=== PATIENT | male | born 1950 | race Caucasian/White ===

== ENCOUNTER 2021-01-28 14:31 | Emergency (ER) | payer BC ==
--- NOTE | 2021-01-28 15:38 | EDM.PDOC ---
ED HPI GENERAL MEDICAL PROBLEM - General Chief Complaint: Gastrointestinal Problem Stated Complaint: FEVER,DIARRHEA -CANCER PT Time Seen by Provider: 01/28/21 15:37 - History of Present Illness INITIAL COMMENTS - FREE TEXT/NARRATIVE: 71-year-old male presents the emergency room with severe diarrhea and fevers. Patient has a significant history of lymphoma T-cell follicular type. His first dose of chemotherapy was on the of last month. And he did fine following this. Yesterday he developed diarrhea every time he tries to eat or drink some it goes right through him. He has had fevers as high as 101.5 at home. He d enies any significant discomfort but he is starting to get weak and lightheaded. Patient denies any recent antibiotic use. He has not seen any blood in the diarrhea it is often very watery. - Related Data Allergies Allergy/AdvReac Type Severity Reaction Status Date / Time indomethacin [From Indocin] Allergy Cannot Verified 01/28/21 15:03 Remember Home Meds: Home Meds Ibuprofen 400 mg PO DAILY 11/30/15 [History] Allopurinol [Zyloprim] 1 tab PO DAILY 01/28/21 [History] Ascorbic Acid [Vitamin C] 1 tab PO DAILY 01/28/21 [History] Aspirin [Adult Low Dose Aspirin EC] 1 tab PO DAILY 01/28/21 [History] L.acidoph,Paracasei, B.lactis [Probiotic] 1 tab PO DAILY 01/28/21 [History] OLANZapine [Olanzapine] 1 tab PO BEDTIME 01/28/21 [History] Ondansetron [Zofran] 1 tab PO TID PRN 01/28/21 [History] Prochlorperazine Maleate [Compazine] 1 tab PO QID PRN 01/28/21 [History] Triamcinolone Acetonide [Kenalog 0.1% Crm] 1 dose TOP ASDIRECTED 01/28/21 [History] Zinc Sulfate [Zincate] 1 tab PO DAILY 01/28/21 [History] diphenhydrAMINE HCL [Diphenhydramine HCl] 1 tab PO ASDIRECTED PRN 01/28/21 [History] predniSONE [Prednisone] 2 tab PO ASDIRECTED 01/28/21 [History] Past Medical History HEENT History: Reports: Impaired Vision Other HEENT History: wears glasses Cardiovascular History: Reports: Other (See Below) Other Cardiovascular History: hyperlipidemia,hypotension. Oncologic (Cancer) History: Reports: Lymphoma, Other (See Below) - Infectious Disease History Infectious Disease History: Reports: Chicken Pox, Measles - Past Surgical History Oncologic Surgical History: Reports: Other (See Below) Other Oncologic Surgeries/Procedures: lyphnode biopsy out of L groin Social & Family History - Tobacco Use Tobacco Use Status *Q: Former Tobacco User Used Tobacco, but Quit: Yes Month/Year Tobacco Last Used: 1979 - Caffeine Use Caffeine Use: Reports: Coffee, Soda - Recreational Drug Use Recreational Drug Use: No ED ROS GENERAL - Review of Systems Review Of Systems: See Below Constitutional: Reports: Fever, Chills, Weakness, Fatigue. Denies: No Symptoms HEENT: Reports: No Symptoms Respiratory: Reports: No Symptoms Cardiovascular: Reports: No Symptoms Endocrine: Reports: No Symptoms GI/Abdominal: Reports: Diarrhea, Nausea. Denies: Constipation, Vomiting : Reports: No Symptoms Musculoskeletal: Reports: No Symptoms Skin: Reports: No Symptoms Neurological: Reports: No Symptoms Psychiatric: Reports: No Symptoms Hematologic/Lymphatic: Reports: No Symptoms ED EXAM, GENERAL - Physical Exam Exam: See Below Exam Limited By: No Limitations General Appearance: Alert, No Apparent Distress Eye Exam: Bilateral Eye: Normal Inspection Ears: Normal External Exam, Normal Canal, Hearing Grossly Normal, Normal TMs Nose: Normal Inspection, Normal Mucosa, No Blood Throat/Mouth: Normal Inspection, Normal Lips, Normal Gums, Normal Oropharynx, Normal Voice, No Airway Compromise Head: Atraumatic, Normocephalic Neck: Normal Inspection, Supple, Non-Tender. No: Lymphadenopathy (L), Lymphadenopathy (R), Tender Lateral, Tender Midline Respiratory/Chest: No Respiratory Distress, Lungs Clear, Normal Breath Sounds Cardiovascular: No Edema, No Murmur, Tachycardia (Mildly so at 103) GI/Abdominal: Normal Bowel Sounds, Soft, Non-Tender. No: Guarding, Rigid, Rebound Rectal (Males) Exam: No: Rectal Fissure Back Exam: Normal Inspection. No: CVA Tenderness (R) Extremities: Normal Inspection Neurological: Alert, Oriented, Normal Cognition Skin Exam: Warm, Dry, Intact Course - Vital Signs Last Recorded V/S: Last Vital Signs Temp 36.9 C 01/28/21 14:59 Pulse 103 H 01/28/21 14:59 Resp 18 01/28/21 14:59 BP 138/58 L 01/28/21 14:59 Pulse Ox 95 01/28/21 14:59 - Orders/Labs/Meds Orders: Active Orders 24 hr Category Date Time Status C DIFFICILE PCR W/REFLEX [MOLEC] Stat Lab 01/28/21 16:04 Ordered CULTURE BLOOD [BC] Stat Lab 01/28/21 16:20 Received CULTURE BLOOD [BC] Stat Lab 01/28/21 16:29 Received UA RFX ERIN AND CULT IF INDIC [URIN] Stat Lab 01/28/21 18:45 Received Blood Culture x2 Reflex Set [OM.PC] Stat Oth 01/28/21 16:04 Ordered Labs: Laboratory Tests 01/28/21 01/28/21 01/28/21 Range/Units 16:20 16:20 16:20 WBC 0.81 L* (4.23-9.07) K/mm3 RBC 4.13 L (4.63-6.08) M/mm3 Hgb 12.5 L D (13.7-17.5) gm/dl Hct 37.9 L (40.1-51.0) % MCV 91.8 (79.0-92.2) fl MCH 30.3 (25.7-32.2) pg MCHC 33.0 (32.2-35.5) g/dl RDW Std Deviation 40.9 (35.1-43.9) fL Plt Count 128 L D (163-337) K/mm3 MPV 9.6 (9.4-12.3) fl Neutrophils % (Manual) 2 L (40-60) % Band Neutrophils % 0 (0-10) % Lymphocytes % (Manual) 97 H (20-40) % Atypical Lymphs % 0 % Monocytes % (Manual) 2 (2-10) % Eosinophils % (Manual) 0 L (0.8-7.0) % Basophils % (Manual) 0 L (0.2-1.2) Platelet Estimate Decreased Plt Morphology Comment See note RBC Morph Comment Normal Sodium 136 (136-145) mEq/L Potassium 3.6 (3.5-5.1) mEq/L Chloride 101 (98-107) mEq/L Carbon Dioxide 24 (21-32) mEq/L Anion Gap 14.6 (5-15) BUN 11 (7-18) mg/dL Creatinine 1.1 (0.7-1.3) mg/dL Est Cr Clr Drug Dosing 65.44 mL/min Estimated GFR (MDRD) > 60 (>60) mL/min BUN/Creatinine Ratio 10.0 L (14-18) Glucose 112 (80-115) mg/dL Lactic Acid 1.0 (0.4-2.0) mmol/L Calcium 8.4 L (8.5-10.1) mg/dL Total Bilirubin 1.2 H (0.2-1.0) mg/dL AST 18 (15-37) U/L ALT 44 (16-63) U/L Alkaline Phosphatase 129 H (46-116) U/L Total Protein 7.2 (6.4-8.2) g/dl Albumin 2.9 L (3.4-5.0) g/dl Globulin 4.3 gm/dL Albumin/Globulin Ratio 0.7 L (1-2) SARS-CoV-2 RNA (LATRICIA) (NEGATIVE) 01/28/21 Range/Units 16:35 WBC (4.23-9.07) K/mm3 RBC (4.63-6.08) M/mm3 Hgb (13.7-17.5) gm/dl Hct (40.1-51.0) % MCV (79.0-92.2) fl MCH (25.7-32.2) pg MCHC (32.2-35.5) g/dl RDW Std Deviation (35.1-43.9) fL Plt Count (163-337) K/mm3 MPV (9.4-12.3) fl Neutrophils % (Manual) (40-60) % Band Neutrophils % (0-10) % Lymphocytes % (Manual) (20-40) % Atypical Lymphs % % Monocytes % (Manual) (2-10) % Eosinophils % (Manual) (0.8-7.0) % Basophils % (Manual) (0.2-1.2) Platelet Estimate Plt Morphology Comment RBC Morph Comment Sodium (136-145) mEq/L Potassium (3.5-5.1) mEq/L Chloride (98-107) mEq/L Carbon Dioxide (21-32) mEq/L Anion Gap (5-15) BUN (7-18) mg/dL Creatinine (0.7-1.3) mg/dL Est Cr Clr Drug Dosing mL/min Estimated GFR (MDRD) (>60) mL/min BUN/Creatinine Ratio (14-18) Glucose (80-115) mg/dL Lactic Acid (0.4-2.0) mmol/L Calcium (8.5-10.1) mg/dL Total Bilirubin (0.2-1.0) mg/dL AST (15-37) U/L ALT (16-63) U/L Alkaline Phosphatase (46-116) U/L Total Protein (6.4-8.2) g/dl Albumin (3.4-5.0) g/dl Globulin gm/dL Albumin/Globulin Ratio (1-2) SARS-CoV-2 RNA (LATRICIA) Positive H (NEGATIVE) Meds: Medications Discontinued Medications Generic Name Dose Route Start Last Admin Trade Name Freq PRN Reason Stop Dose Admin Lactated Ringer's 1,000 mls @ 999 mls/hr 01/28/21 16:07 01/28/21 16:23 Ringers, Lactated IV 01/28/21 17:07 999 mls/hr .BOLUS ONE Administration - Re-Assessments/Exams Free Text/Narrative Re-Assessment/Exam: 01/28/21 19:40 Patient's white count turned out to be .81 and his Covid is positive. I discussed my findings and concerns with the patient with the hospitalist, Dr. Colby at [facility] in [place] she agrees kindly to accept the patient in transfer which I think is in the patient's best interest as he is getting chemotherapy at this time for his lymphoma. With the neutropenia we will start him on Flagyl and Levaquin. Blood cultures pending. Departure - Departure Time of Disposition: 19:55 Disposition: DC/Tfer to [facility] 02 Clinical Impression: Neutropenia, SARS-CoV-2 positive - Discharge Information Referrals: Jorje Gracia MD [Primary Care Provider] - Forms: ED Department Discharge Sepsis Event Note (ED) - Evaluation Sepsis Screening Result: No Definite Risk - Focused Exam Vital Signs: Vital Signs Temp Pulse Resp BP Pulse Ox 01/28/21 14:59 36.9 C 103 H 18 138/58 L 95 - My Orders Last 24 Hours: My Active Orders 01/28/21 16:04 C DIFFICILE PCR W/REFLEX [MOLEC] Stat Blood Culture x2 Reflex Set [OM.PC] Stat 01/28/21 16:20 CULTURE BLOOD [BC] Stat 01/28/21 16:29 CULTURE BLOOD [BC] Stat 01/28/21 18:45 UA RFX ERIN AND CULT IF INDIC [URIN] Stat - Assessment/Plan Last 24 Hours: My Active Orders 01/28/21 16:04 C DIFFICILE PCR W/REFLEX [MOLEC] Stat Blood Culture x2 Reflex Set [OM.PC] Stat 01/28/21 16:20 CULTURE BLOOD [BC] Stat 01/28/21 16:29 CULTURE BLOOD [BC] Stat 01/28/21 18:45 UA RFX ERIN AND CULT IF INDIC [URIN] Stat
[2021-01-28] MEDS ORDERED: Lactated Ringers 1,000 ML IV ONE (16:07)
[2021-01-28] MEDS ORDERED: metroNIDAZOLE/Normal Saline 500 MG in Premix Bag 1 BAG IV ONE (19:38)
[2021-01-28] MEDS ORDERED: Levofloxacin/Dextrose 5%-Water 750 MG in Premix Bag 1 BAG IV ONE (19:38)
[2021-01-28 21:47] VITALS: BP 110/53; PULSE 95
== END 2021-01-28 21:09 ==
LOC: JD.ED 14:31
DX: U07.1 COVID-19 (principal); D70.9 Neutropenia, unspecified; Z88.8 Allergy status to other drugs, medicaments and biological substances; Z79.899 Other long term (current) drug therapy; Z79.82 Long term (current) use of aspirin; Z87.891 Personal history of nicotine dependence
CPT/HCPCS: 36415; 80053; 81001; 83605; 85007; 85027; 87040; 87635; 96365; 96368; 99285; J1956; J3490; J7120; 99283; U0002

== ENCOUNTER 2021-03-09 17:27 | Emergency (ER) | payer BC ==
[2021-03-09 17:43] VITALS: BP 128/67; PULSE 77
[2021-03-09] MEDS ORDERED: Sodium Chloride 0.9% 1,000 ML IV ONE (18:15)
--- NOTE | 2021-03-09 19:42 | EDM.PDOC ---
ED HPI GENERAL MEDICAL PROBLEM - General Chief Complaint: General Stated Complaint: DIZZINESS Time Seen by Provider: 03/09/21 19:20 Source of Information: Reports: Patient History Limitations: Reports: No Limitations - History of Present Illness INITIAL COMMENTS - FREE TEXT/NARRATIVE: 71-year-old male presents to the emergency department requesting to have a liter of IV fluids. He states that he has a history of lymphoma and he has received 3 rounds of chemotherapy thus far. He states that periodically he goes into the oncology center when he is feeling weak and he receives a liter of IV fluids. He states this does seem to help. He was set to receive a liter of IV fluids tomorrow at the oncology center however he states he felt he needed it today. He called the oncology center and as it was too late in the day they recommended he come to the emergency department to have his liter of IV fluids. He denies any recent fever, chills, nausea, vomiting, headache, shortness of breath or cough. He states he has diarrhea chronically. He is quite adamant he received a liter of IV fluids at this time. - Related Data Allergies Allergy/AdvReac Type Severity Reaction Status Date / Time indomethacin [From Indocin] Allergy Severe Cannot Verified 03/09/21 17:43 Remember Home Meds: Home Meds Ibuprofen 400 mg PO DAILY 11/30/15 [History] Ascorbic Acid [Vitamin C] 1 tab PO DAILY 01/28/21 [History] Aspirin [Adult Low Dose Aspirin EC] 1 tab PO DAILY 01/28/21 [History] L.acidoph,Paracasei, B.lactis [Probiotic] 1 tab PO DAILY 01/28/21 [History] OLANZapine [Olanzapine] 1 tab PO BEDTIME 01/28/21 [History] Ondansetron [Zofran] 1 tab PO TID PRN 01/28/21 [History] Prochlorperazine Maleate [Compazine] 1 tab PO QID PRN 01/28/21 [History] Triamcinolone Acetonide [Kenalog 0.1% Crm] 1 dose TOP ASDIRECTED 01/28/21 [History] Zinc Sulfate [Zincate] 1 tab PO DAILY 01/28/21 [History] Past Medical History HEENT History: Reports: Impaired Vision Other HEENT History: wears glasses Cardiovascular History: Reports: High Cholesterol, Other (See Below) Other Cardiovascular History: hypotension. Oncologic (Cancer) History: Reports: Lymphoma - Infectious Disease History Infectious Disease History: Reports: Chicken Pox, Measles - Past Surgical History Oncologic Surgical History: Reports: Other (See Below) Other Oncologic Surgeries/Procedures: lymph node biopsy out of L groin Social & Family History - Tobacco Use Tobacco Use Status *Q: Never Tobacco User - Caffeine Use Caffeine Use: Reports: None - Recreational Drug Use Recreational Drug Use: No ED ROS GENERAL - Review of Systems Review Of Systems: Comprehensive ROS is negative, except as noted in HPI. ED EXAM, GENERAL - Physical Exam Exam: See Below Exam Limited By: No Limitations General Appearance: Alert, WD/WN, No Apparent Distress Ears: Normal External Exam, Hearing Grossly Normal Nose: Normal Inspection Throat/Mouth: Normal Inspection, Normal Lips, Normal Voice, No Airway Compromise Head: Atraumatic Neck: Normal Inspection, Supple, Non-Tender, Full Range of Motion Respiratory/Chest: No Respiratory Distress, Lungs Clear, Normal Breath Sounds, No Accessory Muscle Use, Chest Non-Tender Cardiovascular: Normal Peripheral Pulses, Regular Rate, Rhythm, No Edema, No Murmur GI/Abdominal: Normal Bowel Sounds, Soft, Non-Tender, No Distention (Male) Exam: Deferred Rectal (Males) Exam: Deferred Back Exam: Normal Inspection, Full Range of Motion Extremities: Normal Inspection, Normal Range of Motion, Non-Tender, No Pedal Edema, Normal Capillary Refill Neurological: Alert, Oriented, Normal Cognition Psychiatric: Normal Affect, Normal Mood Skin Exam: Warm, Dry, Intact, Normal Color, No Rash Lymphatic: No Adenopathy Course - Vital Signs Text/Narrative:: Patient presents the emergency department with 3 request that he receive a liter of IV normal saline. He states he has a history of lymphoma and was scheduled to have 1 L of IV fluids infused tomorrow at the cancer center. He states he felt he needed it today and called the [facility] requesting to have that done however it was too late in the day so they told him to come to the emergency department to have this completed. Patient is not wanting labs at this time. I have ordered for the patient to receive 1 L of normal saline. Last Recorded V/S: Last Vital Signs Temp 97.2 F 03/09/21 17:41 Pulse 77 03/09/21 17:41 Resp 16 03/09/21 17:41 BP 128/67 03/09/21 17:41 Pulse Ox 98 03/09/21 17:41 - Orders/Labs/Meds Meds: Medications Discontinued Medications Generic Name Dose Route Start Last Admin Trade Name Rene CALLES Reason Stop Dose Admin Sodium Chloride 1,000 mls @ 999 mls/hr 03/09/21 18:15 03/09/21 18:33 Normal Saline IV 03/09/21 19:15 999 mls/hr ONETIME ONE Administration - Re-Assessments/Exams Free Text/Narrative Re-Assessment/Exam: 03/09/21 19:45 Normal saline infusion is complete. Patient states he feels much better and is requesting to go home immediately. Patient states he will follow up at the cancer center tomorrow as previously scheduled. Departure - Departure Time of Disposition: 19:39 Disposition: Home, Self-Care 01 Condition: Good Clinical Impression: Dehydration - Discharge Information Instructions: Dehydration, Adult, [id number] Referrals: Irene Allen SCRAP CUTTER [Primary Care Provider] - Forms: ED Department Discharge Additional Instructions: You were seen in the emergency department today with complaints of dizziness. You stated that you were to receive an infusion of normal saline 1 L at the oncology center tomorrow however you called them and they encourage you come to the emergency department. He reported feeling much better after receiving a liter of IV fluids. Recommend that you follow-up with the oncology center tomorrow as previously scheduled. Should your condition worsen or change, do not hesitate returning to the emergency department. Sepsis Event Note (ED) - Evaluation Sepsis Screening Result: No Definite Risk - Focused Exam Vital Signs: Vital Signs Temp Pulse Resp BP Pulse Ox 03/09/21 17:41 97.2 F 77 16 128/67 98
== END 2021-03-09 20:02 | disposition home or self-care (01) ==
LOC: JD.ED 17:27
DX: E86.0 Dehydration (principal); Z88.8 Allergy status to other drugs, medicaments and biological substances; Z79.82 Long term (current) use of aspirin; Z79.899 Other long term (current) drug therapy
CPT/HCPCS: 99283; J1642; J7030

== ENCOUNTER 2021-03-28 12:07 | Emergency (ER) | payer BC ==
[2021-03-28] MEDS ORDERED: Dextrose 5%-0.9% NaCl 1,000 ML IV SCH (12:15)
--- NOTE | 2021-03-28 12:18 | EDM.PDOC ---
ED HPI GENERAL MEDICAL PROBLEM - General Chief Complaint: Neuro Symptoms/Deficits Stated Complaint: [facility] Time Seen by Provider: 03/28/21 12:13 Source of Information: Reports: Patient, EMS History Limitations: Reports: Altered Mental Status - History of Present Illness INITIAL COMMENTS - FREE TEXT/NARRATIVE: 71-year-old male presents to the ED per [facility]. Patient has apparently primary lung cancer. From what I could ascertain is in the right lung. He apparently has been receiving chemotherapy every 2 weeks since approximately December of this year. He did receive chemotherapy at [facility] this morning. He then went to work. 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 Son reports that he was off since coming to work today seem to be confused and disoriented. Would hold of a bolt to look at it for a long period of time and not sure what he was going to do next etc. 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 The patient is struggling to provide history to me in the ED. Blood pressure is on the low side at 99/64. Blood sugar in the ED was 157 at the bedside. P atient obeys all commands and seem to have normal upper motor power and function normal in his extremities. He could not perform [id number] or rapid alternating movements although he did attempt these procedures. Denies feeling nauseated or vomiting. He is pale in color however. Denies cough or sputum production. Denies hemoptysis. No recent problems with fever or chills. His son caught him before he hit the floor this morning and therefore he did not receive any injuries from his syncopal event. There is no suggestion that he had any obvious seizure activity. Onset: Today, Sudden Onset Date: 03/28/21 Onset Time: 11:45 Duration: Minutes:, Constant (Transient confusion disorientation since going to work after receiving chemotherapy infusion this morning.) Location: Reports: Generalized (Generalized confusion disorientation with near syncope at work.) Quality: Reports: Other Severity: Moderate Improves with: Reports: None Worsens with: Reports: None Context: Reports: Other (Syncopal event at work this morning. This was after receiving chemotherapy for lung cancer at the [facility] this morning. No history of vomiting.). Denies: Activity, Exercise, Lifting, Sick Contact, Trauma Associated Symptoms: Reports: Confusion, Loss of Appetite, Malaise, Weakness. 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 (see below) (Generalized) - Related Data Allergies Allergy/AdvReac Type Severity Reaction Status Date / Time indomethacin [From Indocin] Allergy Unknown Cannot Verified 03/28/21 12:19 Remember Home Meds: Home Meds Ibuprofen 400 mg PO DAILY 11/30/15 [History] Ascorbic Acid [Vitamin C] 1 tab PO DAILY 01/28/21 [History] Aspirin [Adult Low Dose Aspirin EC] 1 tab PO DAILY 01/28/21 [History] L.acidoph,Paracasei, B.lactis [Probiotic] 1 tab PO DAILY 01/28/21 [History] OLANZapine [Olanzapine] 1 tab PO BEDTIME 01/28/21 [History] Ondansetron [Zofran] 1 tab PO TID PRN 01/28/21 [History] Prochlorperazine Maleate [Compazine] 1 tab PO QID PRN 01/28/21 [History] Triamcinolone Acetonide [Kenalog 0.1% Crm] 1 dose TOP ASDIRECTED 01/28/21 [History] Zinc Sulfate [Zincate] 1 tab PO DAILY 01/28/21 [History] Past Medical History HEENT History: Reports: Impaired Vision Other HEENT History: wears glasses Cardiovascular History: Reports: High Cholesterol, Other (See Below) Other Cardiovascular History: hypotension. 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 He has been receiving chemotherapy every 2 weeks since that time.) - Infectious Disease History Infectious Disease History: Reports: Chicken Pox, Measles - Past Surgical History Oncologic Surgical History: Reports: Other (See Below) Other Oncologic Surgeries/Procedures: lymph node biopsy out of L groin Social & Family History - Caffeine Use Caffeine Use: Reports: None - Living Situation & Occupation Living situation: Reports: Occupation: Employed (Self-employed. [employer]) ED ROS GENERAL - Review of Systems Review Of Systems: See Below Constitutional: Reports: Malaise, Weakness, Fatigue, Decreased Appetite, Weight Loss. Denies: Fever, Chills HEENT: Reports: Glasses Respiratory: Denies: Shortness of Breath, Wheezing, Pleuritic Chest Pain, Cough, Sputum Cardiovascular: Reports: Lightheadedness. Denies: Chest Pain, Blood Pressure Problem, Claudication, Dyspnea on Exertion, Edema, Orthopnea, Palpitations Endocrine: Reports: Fatigue GI/Abdominal: Reports: Decreased Appetite, Nausea (Intermittent nausea and vomiting.), Vomiting (Intermittent nausea vomiting but no reported vomiting this morning.) : Reports: Frequency, Other (Nocturia x2) Musculoskeletal: Reports: Back Pain (Some low back pain and hip pain.) Skin: Reports: No Symptoms Neurological: Reports: No Symptoms Psychiatric: Reports: No Symptoms Hematologic/Lymphatic: Reports: No Symptoms Immunologic: Reports: No Symptoms - Physical Exam Exam: See Below Exam Limited By: Altered Mental Status (Patient is mildly confused. He tries to answer questions but you can tell that he is disoriented to time and cannot find the answers i.e. what side lung cancer is on etc.) General Appearance: Anxious, Lethargic, Thin, Other (Mildly pallid. Blood pressure is 99 on 64. Heart rate 60 and sinus. O2 sats 99% on room air temperatures not yet recorded but he is cool to touch.) Eye Exam: Bilateral Eye: Normal Inspection, PERRL Throat/Mouth: Normal Inspection, Normal Lips, Normal Teeth, Normal Oropharynx, Other (Tongue is mildly dry and coated) Head Exam: Atraumatic, Normocephalic Neck: Normal Inspection, Supple, Non-Tender, Full Range of Motion. No: Carotid Bruit, Lymphadenopathy (L), Lymphadenopathy (R) Respiratory/Chest: No Respiratory Distress, Lungs Clear, Normal Breath Sounds, No Accessory Muscle Use, Other (Patient has a Port-A-Cath right upper anterior chest that has been accessed with ecchymoses around the Port-A-Cath.) Cardiovascular: Normal Peripheral Pulses, Regular Rate, Rhythm, No Edema, No Gallop, No Murmur, No Rub GI/Abdominal: Normal Bowel Sounds, Soft, Non-Tender, No Organomegaly, No Mass, Pelvis Stable Neuro Exam (Abbreviated): CN II-XII Intact, Normal Gait (Not evaluated), No Motor/Sensory Deficits (Motor power and tone in upper and lower extremities appears to be normal and symmetrical.), Confused (Seems confused), Disoriented, Slow to Respond. No: Oriented (Disoriented to time and place), Normal Cognition DTR: 0: Achilles (R), Achilles (L), 1+: Bicep (R), Bicep (L), Patella (R), Patella (L) Back Exam: Normal Inspection, Full Range of Motion. No: CVA Tenderness (L), CVA Tenderness (R) Extremities: Normal Inspection, Normal Range of Motion, Non-Tender, No Pedal Edema Psychiatric: Flat Affect Skin Exam: Dry, Intact, Cool, Pallor (Moderately pallid.) #1 Interpretation EKG Date: 03/28/21 Time: 12:40 Rhythm: Other (Sinus bradycardia) Rate (Beats/Min): 57 [place]: Normal P-Wave: Present QRS: Other (Mildly decreased voltage limb and precordial leads.) ST-T: Other (Diffuse early repolarization pattern with no signs of ischemia.) QT: Normal EKG Interpretation Comments: Borderline ECG Course - Vital Signs Last Recorded V/S: Last Vital Signs Temp 36.4 C 03/28/21 12:29 Pulse 82 03/28/21 12:29 Resp 18 03/28/21 12:29 BP 99/64 03/28/21 12:29 Pulse Ox 95 03/28/21 12:29 - Orders/Labs/Meds Labs: Laboratory Tests 03/28/21 03/28/21 03/28/21 Range/Units 12:26 12:26 12:26 WBC 3.86 L (4.23-9.07) K/mm3 RBC 3.01 L (4.63-6.08) M/mm3 Hgb 9.2 L D (13.7-17.5) gm/dl Hct 28.8 L (40.1-51.0) % MCV 95.7 H D (79.0-92.2) fl MCH 30.6 (25.7-32.2) pg MCHC 31.9 L (32.2-35.5) g/dl RDW Std Deviation 57.5 H (35.1-43.9) fL Plt Count 173 (163-337) K/mm3 MPV 9.8 (9.4-12.3) fl Neut % (Auto) 97.4 H (34.0-67.9) % Lymph % (Auto) 1.8 L (21.8-53.1) % [place] % (Auto) 0.0 L (5.3-12.2) % Eos % (Auto) 0 L (0.8-7.0) Baso % (Auto) 0.3 (0.1-1.2) % Neut # (Auto) 3.76 (1.78-5.38) K/mm3 Lymph # (Auto) 0.07 L (1.32-3.57) K/mm3 [place] # (Auto) 0 L (0.30-0.82) K/mm3 Eos # (Auto) 0.00 L (0.04-0.54) K/mm3 Baso # (Auto) 0.01 (0.01-0.08) K/mm3 Manual Slide Review Abnormal smear PT 10.8 (9.7-12.0) SECONDS INR 1.01 APTT 21.7 (21.7-31.4) SECONDS Sodium 137 (136-145) mEq/L Potassium 4.3 (3.5-5.1) mEq/L Chloride 103 (98-107) mEq/L Carbon Dioxide 24 (21-32) mEq/L Anion Gap 14.3 (5-15) BUN 27 H (7-18) mg/dL Creatinine 0.8 (0.7-1.3) mg/dL Est Cr Clr Drug Dosing 95.65 mL/min Estimated GFR (MDRD) > 60 (>60) mL/min BUN/Creatinine Ratio 33.8 H (14-18) Glucose 171 H (70-99) mg/dL Calcium 8.5 (8.5-10.1) mg/dL Magnesium 1.9 (1.8-2.4) mg/dL Total Bilirubin 0.6 (0.2-1.0) mg/dL AST 18 (15-37) U/L ALT 43 (16-63) U/L Alkaline Phosphatase 88 (46-116) U/L Troponin I < 0.017 (0.00-0.056) ng/mL C-Reactive Protein < 0.2 (<1.0) mg/dL NT-Pro-B Natriuret Pep (0-125) pg/mL Total Protein 6.3 L (6.4-8.2) g/dl Albumin 2.9 L (3.4-5.0) g/dl Globulin 3.4 gm/dL Albumin/Globulin Ratio 0.9 L (1-2) SARS-CoV-2 RNA ([place]ATRIC[place]) (NEGATIVE) 03/28/21 03/28/21 Range/Units 12:26 12:41 WBC (4.23-9.07) K/mm3 RBC (4.63-6.08) M/mm3 Hgb (13.7-17.5) gm/dl Hct (40.1-51.0) % MCV (79.0-92.2) fl MCH (25.7-32.2) pg MCHC (32.2-35.5) g/dl RDW Std Deviation (35.1-43.9) fL Plt Count (163-337) K/mm3 MPV (9.4-12.3) fl Neut % (Auto) (34.0-67.9) % Lymph % (Auto) (21.8-53.1) % [place] % (Auto) (5.3-12.2) % Eos % (Auto) (0.8-7.0) Baso % (Auto) (0.1-1.2) % Neut # (Auto) (1.78-5.38) K/mm3 Lymph # (Auto) (1.32-3.57) K/mm3 [place] # (Auto) (0.30-0.82) K/mm3 Eos # (Auto) (0.04-0.54) K/mm3 Baso # (Auto) (0.01-0.08) K/mm3 Manual Slide Review PT (9.7-12.0) SECONDS INR APTT (21.7-31.4) SECONDS Sodium (136-145) mEq/L Potassium (3.5-5.1) mEq/L Chloride (98-107) mEq/L Carbon Dioxide (21-32) mEq/L Anion Gap (5-15) BUN (7-18) mg/dL Creatinine (0.7-1.3) mg/dL Est Cr Clr Drug Dosing mL/min Estimated GFR (MDRD) (>60) mL/min BUN/Creatinine Ratio (14-18) Glucose (70-99) mg/dL Calcium (8.5-10.1) mg/dL Magnesium (1.8-2.4) mg/dL Total Bilirubin (0.2-1.0) mg/dL AST (15-37) U/L ALT (16-63) U/L Alkaline Phosphatase (46-116) U/L Troponin I (0.00-0.056) ng/mL C-Reactive Protein (<1.0) mg/dL NT-Pro-B Natriuret Pep 385 H (0-125) pg/mL Total Protein (6.4-8.2) g/dl Albumin (3.4-5.0) g/dl Globulin gm/dL Albumin/Globulin Ratio (1-2) SARS-CoV-2 RNA (L[place]RICIA) Negative (NEGATIVE) Meds: Medications Discontinued Medications Generic Name Dose Route Start Last Admin Trade Name Rene PRN Reason Stop Dose Admin Heparin Sodium (Porcine) 500 units 03/28/21 14:34 Heparin Sodium 100 Units/Ml 5 Ml Syringe FLUSH 03/28/21 14:35 ONETIME ONE Dextrose/Sodium Chloride 1,000 mls @ 250 mls/hr 03/28/21 12:15 03/28/21 12:39 Dextrose 5%-Normal Saline IV 250 mls/hr ASDIRECTED JORDAN Administration - Radiology Interpretation Free Text/Narrative:: 71-year-old male presents to the ED per [facility] after syncope collapse in his place of work. 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 His son recognized that since receiving chemotherapy at the infusion clinic at [facility] this morning he has been off-- since returning to work. Seems to be confused about what to do about things which is totally atypical. There is no suggestion of nausea or vomiting on scene. Patient cannot recollect that he was nauseated. His son recognized that he was feeling weak and actually caught him before he hit the floor when he seemed to suffer a syncopal event. Paramedics identified his blood pressure to be low at 99/64. Blood sugar in the ED is 157 at the bedside. Patient did respond to commands to examine his upper extremities with normal motor and power and tone bilaterally with no sign of neurological deficit. He is confused and has trouble explaining where his cancer is or how long he has been receiving chemo etc. Concern is therefore for a central nervous system lesion. He may be hypotensive due to not drinking or eating well today and also vasovagal reflex due to nausea from chemo. He will be given Zofran 4 mg IV and IV D5 normal saline at [address] head to be done with routine labs. No blood cultures at this time since he appears to be afebrile. We will access his Port-A-Cath right upper anterior chest. - Re-Assessments/Exams Free Text/Narrative Re-Assessment/Exam: 03/28/21 13:16 CT scan of the brain and head reveals the ventricles along with the basal cisterns and sulci over the convexities to be within normal limits for the patient's age. No abnormal parenchymal densities are seen. No evidence of intracranial hemorrhage. No midline shift or mass-effect is seen. Bone window settings were reviewed. Right maxillary sinus shows opacification with the visualized upper sinus. Slight mucosal thickening is noted anteriorly within the right ethmoid sinus as well. No additional sinus findings appreciable in this study. Visualized mastoid sinuses are clear. I am unable to ascertain whether the sinusitis is chronic or acute. Chest x-ray done portably reveals heart size and mediastinum to be normal. Lungs are clear with no acute parenchymal change. Right-sided infusion port is seen. Tip lies in the satisfactory position. No acute osseous abnormalities are appreciated. 03/28/21 13:20 White count is low i.e. leukopenia with a total white count of 3.86. The differential reveals 97.4% neutrophils and 1.8% lymphocytes. Hemoglobin is low at 9.2 with hematocrit of 28.8. MCV is 95.7. Platelet count 173,000. PT is 10.8 with an INR of 1.01 and PTT of 21.7. Sodium 137 with potassium of 4.3. Chloride 103 with a bicarb of 24. Anion gap is normal at 14.3. BUN is 27 with a creatinine of 0.8 and a GFR greater than 60. BUN/creatinine ratio is elevated at 33.8 suggesting mild volume depletion. Glucose is 171. Calcium is 8.5. Magnesium is 1.9. Liver function is normal. Troponin I is less than 0.017. C-reactive protein less than 0.2. BNP mildly elevated at 385. Total protein is 6.3 with an albumin fraction of 2.9. 03/28/21 13:31 Patient is much more alert now and able to provide a much better history. His is also in the room and able to fill in the blanks. 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 Patient has been receiving chemotherapy every 2 weeks by intravenous infusion. His blood pressure has always been running low. He was seen yesterday and had a liter of IV fluids given. He has been coming about every other day for a liter of IV fluids due to dehydration. His reports that he has had intermittent confusion which they call "chemo brain" from the medicines that he is taking. Blood pressure is still 100/64. IV will be opened up to full. Patient is feeling much better and color is improved. He does not remember being nauseated when he had a syncopal event this morning. Apparently he and his son were walking towards the workbench in the shop and he recalls all of this now. Patient did not receive chemotherapy today. He just received IV fluids in the infusion clinic. Last chemotherapy was given on March 22. He gets chemotherapy every 3 weeks.. Last PET scan revealed most of his inguinal adenopathy had shrunken markedly with chemotherapy. It is hoped that by the end of the summer he will not need chemo any further. 03/28/21 14;30: Patient has completed a full liter of IV fluids. He is looking and feeling much better. He is much more alert as well. No further confusion evident. Blood pressure improved to 107/68. We had him get up from the bed and he jumped up fairly quickly without developing orthostatic hypotension. He could walk normally. He was therefore discharged home in the care of his . Patient advised to try and drink to 20 ounce bottles of Gatorade per day while receiving chemotherapy to try and prevent dehydration. Departure - Departure Time of Disposition: 14:26 Disposition: Home, Self-Care 01 Condition: Fair Clinical Impression: Syncope and collapse, Orthostatic hypotension, Non-Hodgkin's lymphoma in adult - Discharge Information *PRESCRIPTION DRUG MONITORING PROGRAM REVIEWED*: Not Applicable *COPY OF PRESCRIPTION DRUG MONITORING REPORT IN PATIENT NAVID: Not Applicable Instructions: Orthostatic Hypotension, Dehydration, Adult, [id number] Referrals: Jorje Gracia MD [Primary Care Provider] - Forms: ED Department Discharge Additional Instructions: Evaluation in the emergency room today in regards to apparent syncope and collapse which means fainting spell while in your workplace today. Your son caught you before you hit the floor and prevented serious injury. Lab tests and an evaluation in the emergency room revealed initial low blood pressure and confusion. Blood pressure markedly improved after a liter of IV fluids. Lab test revealed dehydration or volume depletion as well. I suspect you are going to need another liter of IV fluids tomorrow but see how you feel. The ideal fluid to replace volume loss is Gatorade or Powerade as they are most identical to IV fluids. If you could drink to 20 ounces of Gatorade daily this would replace most of your fluid needs. Continue all medications as before. Activity as tolerated. Sepsis Event Note (ED) - Focused Exam Vital Signs: Vital Signs Temp Pulse Resp BP Pulse Ox 03/28/21 12:29 36.4 C 82 18 99/64 95
[2021-03-28 12:34] VITALS: BP 99/64; PULSE 82
--- NOTE | 2021-03-28 12:50 | CT ---
Head CT Technique: Multiple axial sections through the brain were obtained. Intravenous contrast was not utilized. Reconstructed coronal and sagittal images were obtained. Comparison: Prior head CT study of 11/30/15. Findings: Ventricles along with basal cisterns and sulci over the convexities are within normal limits for the patient's age. No abnormal parenchymal densities are seen. No evidence of intracranial hemorrhage. No midline shift or mass-effect is seen. Bone window settings were reviewed. Right maxillary sinus shows opacification within the visualized upper sinus. Slight mucosal thickening is noted anteriorly within the right ethmoid sinus. No additional sinus finding is appreciated on this study. Visualized mastoid sinuses are clear. No acute calvarial abnormality is appreciated. Impression: 1. Sinus findings as noted above. Uncertain if these are acute or chronic. Please correlate with the patient's symptoms. 2. No acute intracranial abnormality is seen. Diagnostic code #2
--- NOTE | 2021-03-28 12:51 | CR ---
Chest: Portable view of the chest was obtained. Comparison: Prior chest x-ray of 10/09/14. Heart size and mediastinum are normal. Lungs are clear with no acute parenchymal change. Right-sided infusion port is seen. Tip lies in satisfactory position. No acute osseous abnormality is appreciated. Impression: 1. Infusion catheter. 2. Nothing acute is otherwise seen on portable chest x-ray. Diagnostic code #2
== END 2021-03-28 14:47 | disposition home or self-care (01) ==
LOC: JD.ED 12:07
DX: I95.1 Orthostatic hypotension (principal); C81.90 Hodgkin lymphoma, unspecified, unspecified site; Z88.6 Allergy status to analgesic agent; Z79.82 Long term (current) use of aspirin; Z20.822 Contact with and (suspected) exposure to COVID-19
CPT/HCPCS: 36415; 70450; 71045; 80053; 83735; 83880; 84484; 85025; 85610; 85730; 86140; 87635; 93005; 99285; J7042; 93010; 99283; U0002

== ENCOUNTER 2021-04-03 11:49 | Emergency (ER) | payer MEDICARE, BC ==
[2021-04-03 12:02] VITALS: BP 106/62; PULSE 57
[2021-04-03] MEDS ORDERED: Sodium Chloride 0.9% 1,000 ML IV STA (12:14)
--- NOTE | 2021-04-03 12:45 | EDM.PDOC ---
ED HPI GENERAL MEDICAL PROBLEM - General Chief Complaint: General Stated Complaint: CONFUSION/ LOW BP Time Seen by Provider: 04/03/21 12:02 Source of Information: Reports: Patient, RN Notes Reviewed History Limitations: Reports: No Limitations - History of Present Illness INITIAL COMMENTS - FREE TEXT/NARRATIVE: Patient is a 71-year-old male presenting to the emergency department with his after being sent here from [facility]. reports that he had an episode of loose, incontinent stool while at the infusion center receiving his IV fluids. He is currently being treated for lymphoma and received chemotherapy every 3 weeks. His next infusion is scheduled for this Saturday. He receives 1 L of IV fluids 3 times weekly. He did receive 1 L today. reports that he just finished treatment for C. difficile a couple weeks back. She is unsure what medication he was on but states that it was a pill. There was concern at the clinic that his C. difficile may still be present. also reports that his blood pressure was in the 80s systolically the clinic. Patient does have chronic low blood pressure due to dehydration. He has had only the one episode of loose stool. Denies any abdominal pain, nausea, or vomiting. He does have mild confusion at baseline which his states is "chemo brain". Patient does report some dizziness upon standing this morning. Denies any fever or chills. - Related Data Allergies Allergy/AdvReac Type Severity Reaction Status Date / Time indomethacin [From Indocin] Allergy Unknown Cannot Verified 04/03/21 12:02 Remember Home Meds: Home Meds Ibuprofen 400 mg PO DAILY 11/30/15 [History] Ascorbic Acid [Vitamin C] 1 tab PO DAILY 01/28/21 [History] Aspirin [Adult Low Dose Aspirin EC] 1 tab PO DAILY 01/28/21 [History] L.acidoph,Paracasei, B.lactis [Probiotic] 1 tab PO DAILY 01/28/21 [History] OLANZapine [Olanzapine] 1 tab PO BEDTIME 01/28/21 [History] Ondansetron [Zofran] 1 tab PO TID PRN 01/28/21 [History] Prochlorperazine Maleate [Compazine] 1 tab PO QID PRN 01/28/21 [History] Zinc Sulfate [Zincate] 1 tab PO DAILY 01/28/21 [History] Potassium Chloride 10 meq PO DAILY 04/03/21 [History] predniSONE [Prednisone] 50 mg PO ASDIRECTED 04/03/21 [History] Past Medical History HEENT History: Reports: Impaired Vision Other HEENT History: wears glasses Cardiovascular History: Reports: High Cholesterol, Other (See Below) Other Cardiovascular History: hypotension. Psychiatric History: Reports: Other (See Below) Other Psychiatric History: Confusion due to chemotherapy. Oncologic (Cancer) History: Reports: Lymphoma, Other (See Below) Other Oncologic History: Mixed Cell Follicular Lymphoma - Infectious Disease History Infectious Disease History: Reports: C-Difficile, Chicken Pox, Measles - Past Surgical History Oncologic Surgical History: Reports: Other (See Below) Other Oncologic Surgeries/Procedures: lymph node biopsy out of L groin Social & Family History - Tobacco Use Tobacco Use Status *Q: Never Tobacco User - Caffeine Use Caffeine Use: Reports: None - Recreational Drug Use Recreational Drug Use: No - Living Situation & Occupation Living situation: Reports: 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 Denies: Fever, Chills, Weakness, Fatigue HEENT: Reports: No Symptoms Respiratory: Reports: No Symptoms Cardiovascular: Reports: Blood Pressure Problem, Lightheadedness ED EXAM, GENERAL - Physical Exam Exam: See Below General Appearance: Alert, WD/WN, No Apparent Distress Respiratory/Chest: No Respiratory Distress, Lungs Clear, Normal Breath Sounds, No Accessory Muscle Use, Chest Non-Tender Cardiovascular: Normal Peripheral Pulses, Regular Rate, Rhythm, No Edema, No Gallop, No JVD, No Murmur, No Rub GI/Abdominal: Normal Bowel Sounds, Soft, Non-Tender, No Organomegaly, No Distention, No Abnormal Bruit, No Mass Neurological: Alert, Oriented, CN II-XII Intact, Normal Cognition, Normal Gait, Normal Reflexes, No Motor/Sensory Deficits Psychiatric: Normal Affect, Normal Mood Skin Exam: Warm, Dry, Intact, No Rash, Pallor Course - Vital Signs Last Recorded V/S: Last Vital Signs Temp 96.3 F L 04/03/21 11:57 Pulse 57 L 04/03/21 11:57 Resp 16 04/03/21 11:57 BP 106/62 04/03/21 11:57 Pulse Ox 99 04/03/21 11:57 Orthostatic Blood Pressure [ 82/41 Standing] Orthostatic Blood Pressure [ 100/66 Supine] - Orders/Labs/Meds Labs: Laboratory Tests 04/03/21 04/03/21 Range/Units 12:25 12:25 WBC 0.43 L* (4.23-9.07) K/mm3 RBC 2.88 L (4.63-6.08) M/mm3 Hgb 9.0 L (13.7-17.5) gm/dl Hct 27.6 L (40.1-51.0) % MCV 95.8 H (79.0-92.2) fl MCH 31.3 (25.7-32.2) pg MCHC 32.6 (32.2-35.5) g/dl RDW Std Deviation 58.0 H (35.1-43.9) fL Plt Count 145 L (163-337) K/mm3 MPV 10.1 (9.4-12.3) fl Neut % (Auto) 7.0 L (34.0-67.9) % Lymph % (Auto) 39.5 (21.8-53.1) % [place] % (Auto) 44.2 H (5.3-12.2) % Eos % (Auto) 0 L (0.8-7.0) Baso % (Auto) 7.0 H (0.1-1.2) % Neut # (Auto) 0.03 L (1.78-5.38) K/mm3 Lymph # (Auto) 0.17 L (1.32-3.57) K/mm3 [place] # (Auto) 0.19 L (0.30-0.82) K/mm3 Eos # (Auto) 0.00 L (0.04-0.54) K/mm3 Baso # (Auto) 0.03 (0.01-0.08) K/mm3 Manual Slide Review Abnormal smear Sodium 140 (136-145) mEq/L Potassium 3.9 (3.5-5.1) mEq/L Chloride 106 (98-107) mEq/L Carbon Dioxide 22 (21-32) mEq/L Anion Gap 15.9 H (5-15) BUN 17 (7-18) mg/dL Creatinine 0.7 (0.7-1.3) mg/dL Est Cr Clr Drug Dosing 102.84 mL/min Estimated GFR (MDRD) > 60 (>60) mL/min BUN/Creatinine Ratio 24.3 H (14-18) Glucose 107 H (70-99) mg/dL Calcium 8.6 (8.5-10.1) mg/dL Magnesium 1.9 (1.8-2.4) mg/dL Total Bilirubin 0.6 (0.2-1.0) mg/dL AST 17 (15-37) U/L ALT 39 (16-63) U/L Alkaline Phosphatase 100 (46-116) U/L Total Protein 6.4 (6.4-8.2) g/dl Albumin 3.0 L (3.4-5.0) g/dl Globulin 3.4 gm/dL Albumin/Globulin Ratio 0.9 L (1-2) Meds: Medications Discontinued Medications Generic Name Dose Route Start Last Admin Trade Name Freq PRN Reason Stop Dose Admin Heparin Sodium (Porcine) 500 units 04/03/21 13:50 04/03/21 14:30 Heparin Sodium 100 Units/Ml 5 Ml Syringe FLUSH 500 units ASDIRECTED PRN Administration Other Sodium Chloride 1,000 mls @ 999 mls/hr 04/03/21 12:14 04/03/21 12:27 Normal Saline IV 04/03/21 13:14 999 mls/hr NOW STA Administration - Re-Assessments/Exams Free Text/Narrative Re-Assessment/Exam: Patient is a 71-year-old male presenting to the emergency department from the [facility] with concerns of low blood pressure and a single episode of loose stool. He is currently receiving chemotherapy for lymphoma. Orthostatic vital signs were obtained on triage and he was found to be orthostatic. He did receive a liter of IV fluids in the infusion clinic today. I have ordered a 1 L bolus of normal saline and blood work. If he happens to have a loose stool while here, we will tested for C. difficile. 04/03/21 13:59 Hematology was significant for WBC low at 0.43, hemoglobin low at 9.0, platelets 145. Electrolytes were normal. Patient's blood pressure increased to 127/107 after the liter of IV fluids. He has had no episodes of loose stool in the ER. I did call and speak with Joanna Carrillo NP at the infusion clinic to make her aware of his low white blood cells as he is scheduled to have his chemotherapy infusion on Saturday. We will send him home with stool specimen supplies as well as an outpatient order for C. difficile should he continue to have loose stools. Discharge instructions as documented. Departure - Departure Time of Disposition: 14:00 Disposition: Home, Self-Care 01 Condition: Good Clinical Impression: Orthostatic hypotension, Non-Hodgkin's lymphoma in adult Neutropenia Qualifiers: Neutropenia type: secondary to cancer chemotherapy Qualified Code(s): D70.1 - Agranulocytosis secondary to cancer chemotherapy Diarrhea Qualifiers: Diarrhea type: unspecified type Qualified Code(s): R19.7 - Diarrhea, unspecified - Discharge Information *PRESCRIPTION DRUG MONITORING PROGRAM REVIEWED*: No *COPY OF PRESCRIPTION DRUG MONITORING REPORT IN PATIENT NAVID: No Instructions: Diarrhea, Adult, Orthostatic Hypotension Referrals: Jorje Gracia MD [Primary Care Provider] - Forms: ED Department Discharge Care Plan Goals: You were seen in the emergency department today for evaluation with regards to low blood pressure and an episode of diarrhea. While in the ER, you received a liter of IV fluids. Blood work was completed and your white blood cells were found to be low at 0.45. You have been sent home with supplies to collect a stool sample and return it should you continue to have loose stools. Dr. Gracia's office should be in contact with you with regards to your infusion on Saturday. If you do return a stool specimen, you will be notified of the results should they be positive. Follow-up at the infusion clinic as scheduled or return to ER as needed. Sepsis Event Note (ED) - Evaluation Sepsis Screening Result: No Definite Risk
== END 2021-04-03 14:33 | disposition home or self-care (01) ==
LOC: JD.ED 11:49
DX: I95.1 Orthostatic hypotension (principal); C85.90 Non-Hodgkin lymphoma, unspecified, unspecified site; D70.1 Agranulocytosis secondary to cancer chemotherapy; R19.7 Diarrhea, unspecified; E78.00 Pure hypercholesterolemia, unspecified; I10 Essential (primary) hypertension; Z79.82 Long term (current) use of aspirin; Z88.8 Allergy status to other drugs, medicaments and biological substances
CPT/HCPCS: 36415; 80053; 83735; 85025; 99284; J1642; J7030

== ENCOUNTER 2021-04-25 19:03 | Emergency (ER) | payer BC, MEDICARE ==
--- NOTE | 2021-04-25 20:49 | EDM.PDOC ---
ED HPI GENERAL MEDICAL PROBLEM - General Chief Complaint: Gastrointestinal Problem Stated Complaint: DIARRHEA Time Seen by Provider: 04/25/21 20:48 - History of Present Illness INITIAL COMMENTS - FREE TEXT/NARRATIVE: 71-year-old male presents to the emergency room with diarrhea and lightheadedness. 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 The patient has recurrent loose stools from this and its treatment. Patient has 4-6 runny caramel colored stools daily. These are nonbloody. Patient denies significant discomfort at this time he gets some lightheadedness and has been seen multiple times for IV fluid in this department. He has not had any fevers or chills. Abdominal Pain Score (Numeric/FACES): 3 - Related Data Allergies Allergy/AdvReac Type Severity Reaction Status Date / Time indomethacin [From Indocin] Allergy Unknown Cannot Verified 04/25/21 19:39 Remember Home Meds: Home Meds Ascorbic Acid [Vitamin C] 1 tab PO DAILY 01/28/21 [History] Aspirin [Adult Low Dose Aspirin EC] 1 tab PO DAILY 01/28/21 [History] L.acidoph,Paracasei, B.lactis [Probiotic] 1 tab PO DAILY 01/28/21 [History] OLANZapine [Olanzapine] 1 tab PO BEDTIME 01/28/21 [History] Ondansetron [Zofran] 1 tab PO TID PRN 01/28/21 [History] Prochlorperazine Maleate [Compazine] 1 tab PO QID PRN 01/28/21 [History] Zinc Sulfate [Zincate] 1 tab PO DAILY 01/28/21 [History] Diphenoxylate HCl/Atropine [Lomotil] 1 tab PO ASDIRECTED 04/25/21 [History] Loperamide HCl [Imodium A-D] 2 mg PO ASDIRECTED 04/25/21 [History] Past Medical History HEENT History: Reports: Impaired Vision Other HEENT History: wears glasses Cardiovascular History: Reports: High Cholesterol, Other (See Below) Other Cardiovascular History: hypotension. Gastrointestinal History: Reports: None Genitourinary History: Reports: None Musculoskeletal History: Reports: None Neurological History: Reports: None Psychiatric History: Reports: Other (See Below) Other Psychiatric History: Confusion due to chemotherapy. Endocrine/Metabolic History: Reports: None Hematologic History: Reports: None Oncologic (Cancer) History: Reports: Lymphoma, Other (See Below) Other Oncologic History: Mixed Cell Follicular Lymphoma Dermatologic History: Reports: None - Infectious Disease History Infectious Disease History: Reports: C-Difficile, Chicken Pox, Measles, Novel Coronavirus - Past Surgical History Male Surgical History: Reports: None Oncologic Surgical History: Reports: Other (See Below) Other Oncologic Surgeries/Procedures: lymph node biopsy out of L groin Social & Family History - Family History Family Medical History: No Pertinent Family History Neurological: Reports: Alzheimers Disease Oncologic: Reports: Breast, Metastatic - Tobacco Use Tobacco Use Status *Q: Never Tobacco User - Caffeine Use Caffeine Use: Reports: Coffee - Recreational Drug Use Recreational Drug Use: No - Living Situation & Occupation Living situation: Reports: 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 Denies: Abdominal Pain, Nausea, Vomiting Musculoskeletal: Reports: No Symptoms Skin: Reports: No Symptoms Neurological: Reports: Confusion (He has some degree of underlying dementia but has had problems with chemotherapy making his confusion worse) Psychiatric: Reports: No Symptoms ED EXAM, GENERAL - Physical Exam Exam: See Below Exam Limited By: No Limitations General Appearance: Alert, No Apparent Distress Head: Atraumatic, Normocephalic Neck: Normal Inspection, Supple, Non-Tender, Full Range of Motion Respiratory/Chest: No Respiratory Distress, Lungs Clear, Normal Breath Sounds Cardiovascular: Regular Rate, Rhythm, No Edema, No Murmur GI/Abdominal: Normal Bowel Sounds, Soft, Non-Tender Back Exam: Normal Inspection. No: CVA Tenderness (L), CVA Tenderness (R) Course - Vital Signs Last Recorded V/S: Last Vital Signs Temp 36.9 C 04/25/21 19:46 Pulse 96 04/25/21 19:46 Resp 20 04/25/21 19:46 BP 90/55 L 04/25/21 19:46 Pulse Ox 100 04/25/21 19:46 - Orders/Labs/Meds Orders: Active Orders 24 hr Category Date Time Status Chest 1V Frontal [CR] Stat Exams 04/25/21 21:09 Taken Lactated Ringers [Ringers, Lactated] 1,000 ml Med 04/25/21 21:15 Active IV ASDIRECTED Medication Orders Lactated Ringer's (Ringers, Lactated) 1,000 mls @ 125 mls/hr IV ASDIRECTED JORDAN Last Admin: 04/25/21 21:26 Dose: 125 mls/hr Documented by: AARON Labs: Laboratory Tests 04/25/21 04/25/21 04/25/21 Range/Units 00:29 21:21 21:21 WBC 6.84 (4.23-9.07) K/mm3 RBC 2.37 L (4.63-6.08) M/mm3 Hgb 7.4 L D (13.7-17.5) gm/dl Hct 22.9 L (40.1-51.0) % MCV 96.6 H (79.0-92.2) fl MCH 31.2 (25.7-32.2) pg MCHC 32.3 (32.2-35.5) g/dl RDW Std Deviation 58.5 H (35.1-43.9) fL Plt Count 137 L (163-337) K/mm3 MPV 10.6 (9.4-12.3) fl Neutrophils % (Manual) 66 H (40-60) % Band Neutrophils % 9 (0-10) % Lymphocytes % (Manual) 8 L (20-40) % Atypical Lymphs % 0 % Monocytes % (Manual) 17 H (2-10) % Eosinophils % (Manual) 0 L (0.8-7.0) % Basophils % (Manual) 0 L (0.2-1.2) Toxic Granulation Few Platelet Estimate Decreased Plt Morphology Comment See note Polychromasia 1+ slight Hypochromasia 1+ slight Anisocytosis 1+ slight Tear Drop Cells 1+ slight RBC Morph Comment Abnormal Sodium 136 (136-145) mEq/L Potassium 3.6 (3.5-5.1) mEq/L Chloride 103 (98-107) mEq/L Carbon Dioxide 25 (21-32) mEq/L Anion Gap 11.6 (5-15) BUN 19 H (7-18) mg/dL Creatinine 0.9 (0.7-1.3) mg/dL Est Cr Clr Drug Dosing 85.02 mL/min Estimated GFR (MDRD) > 60 (>60) mL/min BUN/Creatinine Ratio 21.1 H (14-18) Glucose 111 H (70-99) mg/dL Calcium 8.0 L (8.5-10.1) mg/dL Total Bilirubin 0.4 (0.2-1.0) mg/dL AST 15 (15-37) U/L ALT 27 (16-63) U/L Alkaline Phosphatase 116 (46-116) U/L Total Protein 4.9 L (6.4-8.2) g/dl Albumin 1.8 L (3.4-5.0) g/dl Globulin 3.1 gm/dL Albumin/Globulin Ratio 0.6 L (1-2) Urine Color Yellow (Yellow) Urine Appearance Clear (Clear) Urine pH 7.0 (5.0-8.0) Ur Specific [place] 1.020 (1.005-1.030) Urine Protein 1+ H (Negative) Urine Glucose (UA) Negative (Negative) Urine Ketones Negative (Negative) Urine Occult Blood Negative (Negative) Urine Nitrite Negative (Negative) Urine Bilirubin 1+ H (Negative) Urine Urobilinogen 2.0 H (0.2-1.0) Ur Leukocyte Esterase Negative (Negative) Urine RBC 0-5 (0-5) /hpf Urine WBC 0-5 (0-5) /hpf Ur Squamous Epith Cells 0-5 (0-5) /hpf Amorphous Sediment Rare H (NOT SEEN) /hpf Urine Bacteria Few (FEW) /hpf Urine Mucus Not seen (FEW) /hpf Meds: Medications Generic Name Dose Route Start Last Admin Trade Name Freq PRN Reason Stop Dose Admin Lactated Ringer's 1,000 mls @ 125 mls/hr 04/25/21 21:15 04/25/21 21:26 Ringers, Lactated IV 125 mls/hr ASDIRECTED JORDAN Administration Discontinued Medications Generic Name Dose Route Start Last Admin Trade Name Freq PRN Reason Stop Dose Admin Lactated Ringer's 1,000 mls @ 999 mls/hr 04/25/21 21:10 04/25/21 21:25 Ringers, Lactated IV 04/25/21 22:10 999 mls/hr .BOLUS ONE Administration - Re-Assessments/Exams Free Text/Narrative Re-Assessment/Exam: 04/26/21 01:47 Labs concerning only for hemoglobin hematocrit that is dropping his hemoglobin is down to 7.4 he has had a steady decline since the end of this winter. The patient has follow-up with Dr. Montesinos this next week and has infusion coming up in about 6 hours. He is getting close to needing a transfusion. They need to talk this over with Dr. Mevlin and with the infusion team later today. Patient is having this persistent diarrhea unfortunately we could not capture a specimen here in the emergency department even though he had 1 of symptoms with an outpatient order to get rechecked for C. difficile which he had had back in January and it was treated twice. Departure - Departure Time of Disposition: 01:48 Disposition: Home, Self-Care 01 Clinical Impression: Dehydration, T-cell lymphoma - Discharge Information Instructions: Dehydration, Elderly, [id number] Referrals: PCP,None [Ordering Only Provider] - Forms: ED Department Discharge Additional Instructions: Return to the emergency room with any questions problems or worsening symptoms. Discuss the decreasing hemoglobin hematocrit with your oncologist at this next scheduled appointment next week. Sepsis Event Note (ED) - Evaluation Sepsis Screening Result: No Definite Risk - Focused Exam Vital Signs: Vital Signs Temp Pulse Resp BP Pulse Ox 04/25/21 19:46 36.9 C 96 20 90/55 L 100 - My Orders Last 24 Hours: My Active Orders 04/25/21 21:09 Chest 1V Frontal [CR] Stat 04/25/21 21:15 Lactated Ringers [Ringers, Lactated] 1,000 ml IV ASDIRECTED - Assessment/Plan Last 24 Hours: My Active Orders 04/25/21 21:09 Chest 1V Frontal [CR] Stat 04/25/21 21:15 Lactated Ringers [Ringers, Lactated] 1,000 ml IV ASDIRECTED
[2021-04-25] MEDS ORDERED: Lactated Ringers 1,000 ML IV ONE (21:10)
[2021-04-25] MEDS ORDERED: Lactated Ringers 1,000 ML IV SCH (21:15)
[2021-04-26 02:55] VITALS: BP 99/65; PULSE 87
--- NOTE | 2021-04-26 08:15 | CR ---
Chest: Frontal view of the chest was obtained. Comparison: Prior chest x-ray of 03/28/21 Slight increased density within the left lung base is seen which is an interval change from prior exam. Lungs otherwise are clear. Heart size and mediastinum are within normal limits. Right-sided infusion catheter is seen. No acute osseous abnormality is seen. Impression: 1. Increased density within the left lung base which is an interval change from prior exam. This finding is most likely due to atelectasis. 2. Stable infusion catheter. Nothing acute is otherwise seen. Diagnostic code #2
== END 2021-04-26 01:55 | disposition home or self-care (01) ==
LOC: JD.ED 19:03
DX: E86.0 Dehydration (principal); C91.50 Adult T-cell lymphoma/leukemia (HTLV-1-associated) not having achieved remission; F03.90 Unspecified dementia, unspecified severity, without behavioral disturbance, psychotic disturbance, mood disturbance, and anxiety; Z79.82 Long term (current) use of aspirin; Z79.899 Other long term (current) drug therapy; Z88.8 Allergy status to other drugs, medicaments and biological substances
CPT/HCPCS: 36415; 71045; 80053; 81001; 85007; 85027; 87324; 87493; 99284; J7120; 99283